=== PATIENT | male | born 1995 | race Caucasian/White ===

== ENCOUNTER 2023-08-05 11:58 | Emergency (ER) | payer BC ==
[~2023-08-05] VITALS: Ht 177.8 cm; Wt 86.0 kg
[2023-08-05 12:06] VITALS: TEMP 98.4; O2SAT 99
[2023-08-05 15:11] LABS: CLARITY URINE CLOUDY (CLEAR); COLOR URINE YELLOW (YELLOW); GLUCOSE URINE NEGATIVE (NEGATIVE); KETONES URINE NEGATIVE (NEGATIVE); LEUKOCYTE ESTERASE URINE TRACE (NEGATIVE); NITRITE URINE NEGATIVE (NEGATIVE); OCCULT BLOOD URINE 3+ (NEGATIVE); PH URINE 5.5 (4.5-8.0); PROTEIN URINE TRACE (NEGATIVE); SPECIFIC GRAVITY URINE 1.018 (1.005-1.030)
[2023-08-05 15:14] LABS: YEAST URINE NONE SEEN
[2023-08-05] MEDS ORDERED: KETOROLAC 30MG/ML VIAL IM ONE (15:30)
[2023-08-05 15:38] LABS: BACTERIA URINE 2+; RBC URINE 50-100 /hpf (0-2); SQUAMOUS EPITHELIAL CELL URINE FEW /lpf (RARE/1+); WBC URINE 0-2 /hpf (0-2)
[2023-08-05 15:39] LABS: MUCUS URINE 2+ /lpf (NONE/TRACE)
[2023-08-05] MEDS ORDERED: NAPR-1176 MT (16:22)
[2023-08-05] MEDS ORDERED: TAMS-11 MT (16:22)
[2023-08-05] MEDS ORDERED: ACET-2708 MT (16:22)
[2023-08-05 16:34] VITALS: BP 160/106; PULSE 83; RESP 20
== END 2023-08-05 16:44 | disposition home or self-care (01) ==
LOC: ER 11:58
DX: N20.0 Calculus of kidney (principal)
CPT/HCPCS: 81003; 74176; 96372; 99285; J1885; Z7610